=== PATIENT | female | born 1955 | race Caucasian/White ===

== ENCOUNTER 2018-05-07 05:55 | Day surgery (SDC) | payer OTHER ==
[~2018-05-07 05:55] MED LIST: AVAPRO150 MG PO; DICLOFENAC POTA50 MG PO; IBRERSANTAN PO; LEVO-T112 MCG PO; METAMUCIL0.52 G PO; OMEPRAZOLE40 MG PO; SYNTHROID75 MCG PO; TIGAN300 MG PO; TREMFYA100 MG/1 M; ZANTAC150 M3 PO
== END 2018-05-07 11:45 | disposition home or self-care (01) ==
LOC: CIR.AMB 05:55
DX: N84.0 Polyp of corpus uteri (principal)

== ENCOUNTER → 2023-06-26 | Day surgery (SDC) | payer OTHER ==
[~2023-06-26] VITALS: Ht 152.4 cm; Wt 99.8 kg
[~2023-06-26] MED LIST changes: +ACTOS15 MG PO; +ADVA IH; +VALSARTAN-HCTZ1 EAC1 PO; +VITAMIN D3 PO; +[UNRECOGNIZED DRUG - OTHER] PO
== END | disposition home or self-care (01) ==
LOC: ADM 06-24 09:15 → CIR.AMB 05:13
PROVIDERS: ATTEND Obstetrics & Gynecology
DX: N85.02 Endometrial intraepithelial neoplasia [EIN] (principal); N95.0 Postmenopausal bleeding; Z88.2 Allergy status to sulfonamides; Z20.822 Contact with and (suspected) exposure to COVID-19

== ENCOUNTER 2023-08-08 07:45 | Inpatient (IN) | payer OTHER ==
[~2023-08-08] VITALS: Ht 152.4 cm; Wt 104.3 kg
[2023-08-08 09:33] LABS: PH,URINE 5.5 (5.0-8.0); URINE APPEARANCE Clear; URINE BILIRRUBIN Negative (NEGATIVE); URINE BLOOD Small; URINE COLOR Yellow; URINE GLUCOSE Negative (NEGATIVE); URINE LEUKOCYTE Moderate; URINE NITRATE Negative; URINE PROTEIN Negative (NEGATIVE); URINE UROBILINOGEN 0.2 E.U./dl
[2023-08-08 09:34] LABS: URINE EPITHELIAL CELLS 19.4 uL (0.0-38.8); URINE WBC 171.1 uL (0.0-23.2)
[2023-08-08 09:37] LABS: HEMATOCRIT 35.6 % (36.0-45.00); HEMOGLOBIN 12.1 g/dL (12.0-15.00); MEAN CELL VOLUME 89.6 fL (80.00-100.00); MEAN CORPUSCULAR HEMOGLOBIN 30.5 pg (27.00-32.0); MEAN CORPUSCULAR HGB CONC 34.1 g/dl (32.0-36.0); PLATELET COUNT 239 K/uL (150-450); RED BLOOD COUNT 3.98 M/uL (4.00-6.00); RED CELL DISTRIBUTION WIDTH 15.5 % (11.5-14.5)
[2023-08-08 09:54] LABS: INR 1.01; PARTIAL THROMBOPLASTIN TIME 30.2 SECONDS (22.0-34.0); PROTHROMBIN TIME 10.6 SECONDS (9.0-11.5)
[2023-08-08 11:03] LABS: ALBUMIN 3.8 gm/dL (3.4-5.0); BILIRUBIN TOTAL 0.37 mg/dL (0.3-1.2); CALCIUM 8.9 mg/dL (8.5-10.1); CREATININE SERUM 1.04 mg/dL (0.55-1.02); GFR 52.54; GLOBULINA 3.9 G/DL (2.4-3.5); POTASSIUM 4.67 mEq/L (3.5-5.1); TOTAL PROTEIN 7.7 gm/dL (6.4-8.2)
[2023-08-14] MEDS ORDERED: ADVAIR HFA 230/12 GM (13:24)
[2023-08-14] MEDS ORDERED: VITAMIN D350 MCG (13:24)
[2023-08-14] MEDS ORDERED: ESCITALOPRAM OX10 MG (13:24)
[2023-08-14] MEDS ORDERED: ATORVASTATIN CA10 MG (13:24)
[2023-08-15 10:13] LABS: HEMATOCRIT 30.7 % (36.0-45.00); HEMOGLOBIN 10.1 g/dL (12.0-15.00); RED BLOOD COUNT 3.35 M/uL (4.00-6.00)
== END 2023-08-16 13:10 | disposition home or self-care (01) | DRG 741 ==
LOC: OB/GYN 08-14 05:38 → O/R 08-14 05:38 → OB/GYN 08-14 07:45
PROVIDERS: ADMIT Obstetrics & Gynecology; ATTEND Obstetrics & Gynecology
PROC: 0UT70ZZ Resection of Bilateral Fallopian Tubes, Open Approach (ICD-10-PCS; 2023-08-14)
PROC: 0UT00ZZ Resection of Right Ovary, Open Approach (ICD-10-PCS; 2023-08-14)
PROC: 0UT90ZZ Resection of Uterus, Open Approach (ICD-10-PCS; principal; 2023-08-14 10:00)
DX: C54.1 Malignant neoplasm of endometrium (principal); N80.03 Adenomyosis of the uterus; Z20.822 Contact with and (suspected) exposure to COVID-19

== ENCOUNTER 2024-12-30 10:45 | Inpatient (IN) | payer OTHER ==
[~2024-12-30] VITALS: Ht 152.4 cm; Wt 104.3 kg
[~2024-12-30 10:45] MED LIST changes: +ADVAIR HFA 230/12 GM; +ATORVASTATIN CA10 MG; +ESCITALOPRAM OX10 MG; +VITAMIN D350 MCG
[2024-12-30 12:02] VITALS: BP 140/80
[2025-01-07] MEDS ORDERED: BUPIVACAINE HCL/MPF 0.5% 30ML VIAL ONE (07:04)
[2025-01-07] MEDS ORDERED: LIDOCAINE HCL 1%/EPINEPHRINE 20ML VIAL IJ ONE ×2 (07:05→11:00)
[2025-01-07] MEDS ORDERED: METRONIDAZOLE/SODIUM CHLORIDE 500 MG/100 ML PIGGYBACK IV ONE ×3 (07:05→18:22)
[2025-01-07] MEDS ORDERED: CEFTRIAXONE SODIUM 2,000 MG VIAL ONE (07:05)
[2025-01-07] MEDS ORDERED: hydrALAZINE HCL 20 MG VIAL ONE (08:43)
[2025-01-07] MEDS ORDERED: SUGAMMADEX SODIUM 200 MG/2 ML VIAL IV ONE (09:22)
[2025-01-07] MEDS ORDERED: CEFTRIAXONE SODIUM 2,000 MG VIAL IV ONE (11:00)
[2025-01-07] MEDS ORDERED: BUPIVACAINE HCL 30 ML VIAL IV ONE (11:00)
[2025-01-07] MEDS ORDERED: MORPHINE SULFATE 4 MG/ML VIAL IV ONE ×3 (12:35→16:15)
[2025-01-07] MEDS ORDERED: DEXTROSE 50 % IN WATER 0.5 G/ML DISP.SYRIN IV PRN (13:00)
[2025-01-07] MEDS ORDERED: MORPHINE SULFATE 4 MG/ML CARTRIDGE IV PRN (13:00)
[2025-01-07] MEDS ORDERED: OxyCODONE HCL 5 MG TABLET (ROXICODONE) PO PRN (13:00)
[2025-01-07] MEDS ORDERED: 0.9 % SODIUM CHLORIDE 1,000 ML IV SCH (13:00)
[2025-01-07] MEDS ORDERED: HYOSCYAMINE SULFATE 0.125 MG TAB.SUBL SL SCH (13:00)
[2025-01-07] MEDS ORDERED: ONDANSETRON HCL 2 MG/ML VIAL IV PRN (13:00)
[2025-01-07] MEDS ORDERED: ACETAMINOPHEN 500 MG GEL..CAP PO SCH (14:00)
[2025-01-07 14:43] LABS: HEMATOCRIT 33.5 % (36.0-45.00); HEMOGLOBIN 10.9 g/dL (12.0-15.00); MEAN CELL VOLUME 92.5 fL (80.00-100.00); MEAN CORPUSCULAR HGB CONC 32.4 g/dl (32.0-36.0); PLATELET COUNT 305 K/uL (150-450); RED BLOOD COUNT 3.63 M/uL (4.00-6.00); RED CELL DISTRIBUTION WIDTH 14.8 % (11.5-14.5)
[2025-01-07 15:47] LABS: ALBUMIN 2.9 gm/dL (3.4-5.0); CALCIUM 8.1 mg/dL (8.5-10.1); CREATININE SERUM 1.82 mg/dL (0.55-1.02); GFR 27.38; MAGNESIUM 1.8 mg/dL (1.8-2.4); PHOSPHOROUS 5.3 mg/dL (2.5-4.9); POTASSIUM 4.97 mEq/L (3.5-5.1)
[2025-01-07] MEDS ORDERED: GABAPENTIN 300 MG CAPSULE PO SCH (17:00)
[2025-01-07] MEDS ORDERED: POLYETHYLENE GLYCOL 3350 17 GM BLIST.PACK PO SCH (17:00)
[2025-01-07] MEDS ORDERED: METRONIDAZOLE/SODIUM CHLORIDE 500 MG/100 ML PIGGYBACK IV SCH (17:00)
[2025-01-07] MEDS ORDERED: CELECOXIB 200 MG CAPSULE PO SCH (21:00)
[2025-01-07] MEDS ORDERED: FAMOTIDINE/PF 20 MG/2 ML VIAL IV PUSH SCH (21:00)
[2025-01-08] VITALS: BP 116/70; O2SAT 95
[2025-01-08] MEDS ORDERED: LEVOTHYROXINE SODIUM 112 MCG TABLET PO SCH (06:00)
[2025-01-08 06:58] LABS: HEMATOCRIT 32.8 % (36.0-45.00); HEMOGLOBIN 10.8 g/dL (12.0-15.00); MEAN CELL VOLUME 93.4 fL (80.00-100.00); MEAN CORPUSCULAR HEMOGLOBIN 30.6 pg (27.00-32.0); MEAN CORPUSCULAR HGB CONC 32.8 g/dl (32.0-36.0); PLATELET COUNT 254 K/uL (150-450); RED BLOOD COUNT 3.52 M/uL (4.00-6.00); RED CELL DISTRIBUTION WIDTH 15.1 % (11.5-14.5)
[2025-01-08 07:49] LABS: ALBUMIN 2.8 gm/dL (3.4-5.0); CALCIUM 7.7 mg/dL (8.5-10.1); CREATININE SERUM 2.23 mg/dL (0.55-1.02); GFR 21.66; MAGNESIUM 1.8 mg/dL (1.8-2.4); PHOSPHOROUS 5.3 mg/dL (2.5-4.9)
[2025-01-08 08:17] LABS: POTASSIUM 6.26 mEq/L (3.5-5.1)
[2025-01-08] MEDS ORDERED: PATIENTS OWN MEDICATION (MEDICAMENTO EN PISO) PO SCH (09:00)
[2025-01-08 09:20] VITALS: BP 154/79; O2SAT 94
[2025-01-08] MEDS ORDERED: hydrALAZINE HCL 20 MG VIAL IV PRN (12:00)
[2025-01-08] MEDS ORDERED: SODIUM POLYSTYRENE SULFONATE 15 G/4 TSP TSP PO SCH (13:00)
[2025-01-08] MEDS ORDERED: ENOXAPARIN SODIUM 40 MG/0.4 ML SYRINGE SUBCUTANEO SCH (17:00)
[2025-01-08] MEDS ORDERED: PIPERACILLIN/TAZOBACTAM SODIUM 2.25 GM in DEXTROSE 5 % IN WATER 50 ML IV SCH (18:00)
[2025-01-08 18:34] VITALS: BP 92/52; O2SAT 93
[2025-01-09 00:30] VITALS: BP 105/54; O2SAT 96
[2025-01-09 07:59] LABS: URINE APPEARANCE Turbid; URINE BILIRRUBIN Small (NEGATIVE); URINE BLOOD Large; URINE COLOR Dark Yellow; URINE GLUCOSE Negative (NEGATIVE); URINE KETONE Trace (NEGATIVE); URINE LEUKOCYTE Moderate; URINE NITRATE Negative; URINE UROBILINOGEN 0.2 E.U./dl
[2025-01-09 08:03] LABS: URINE BACTERIA 653.6 uL (0.0-1933); URINE CAST 12.44 uL (0.0-1.40); URINE EPITHELIAL CELLS 106.8 uL (0.0-38.8); URINE RBC 676.5 uL (0.0-20.8)
[2025-01-09 08:33] LABS: ALBUMIN 2.5 gm/dL (3.4-5.0); BILIRUBIN TOTAL 0.45 mg/dL (0.3-1.2); CALCIUM 7.6 mg/dL (8.5-10.1); CREATININE SERUM 3.79 mg/dL (0.55-1.02); GFR 11.75; GLOBULINA 3.1 G/DL (2.4-3.5); MAGNESIUM 1.7 mg/dL (1.8-2.4); PHOSPHOROUS 5.5 mg/dL (2.5-4.9); POTASSIUM 4.66 mEq/L (3.5-5.1); TOTAL PROTEIN 5.6 gm/dL (6.4-8.2)
[2025-01-09 08:36] LABS: HEMATOCRIT 27.7 % (36.0-45.00); MEAN CELL VOLUME 94.5 fL (80.00-100.00); MEAN CORPUSCULAR HGB CONC 31.7 g/dl (32.0-36.0); PLATELET COUNT 214 K/uL (150-450); RED BLOOD COUNT 2.94 M/uL (4.00-6.00); RED CELL DISTRIBUTION WIDTH 15.2 % (11.5-14.5)
[2025-01-09 08:37] LABS: URINE PROTEIN 100 (NEGATIVE)
[2025-01-09 08:39] LABS: URINE YEAST NEGATIVE /hpf
[2025-01-09 08:39] LABS: HEMOGLOBIN 8.8 g/dL (12.0-15.00); MEAN CORPUSCULAR HEMOGLOBIN 29.9 pg (27.00-32.0)
[2025-01-09] MEDS ORDERED: ENOXAPARIN SODIUM 40 MG/0.4 ML SYRINGE SUBCUTANEO SCH (09:00)
[2025-01-09 09:07] LABS: C-REACTIVE PROTEIN 28.1 MG/DL (0.00-0.29)
[2025-01-09 12:06] VITALS: BP 118/72; O2SAT 96
[2025-01-09 16:00] VITALS: BP 95/62; O2SAT 95
[2025-01-09] MEDS ORDERED: LEVALBUTEROL HCL 0.63 MG/3 ML SOLUTION IH SCH (17:00)
[2025-01-10] VITALS (25 sets, daily range): BP systolic 66–129; BP diastolic 40–100; O2SAT 90–100
[2025-01-10] MEDS ORDERED: DOPamine HCL IN DEXTROSE 5 % 250 ML IV SCH (06:15)
[2025-01-10 09:38] LABS: ABG PH 7.246 (7.35-7.45); ABG PO2 171.6 mmHg (80-100); ABG pCO2 34.9 mmHg (35-45); BASE EXCESS -11.4 mmol/l; BICARBONATE 14.8 mmol/l (23-25); SaO2 99.1 %; Tco2 15.9 mmol/l
[2025-01-10 09:44] LABS: allen test SATISFACTORY; o2 32 %; puncture site RADIAL LEFT
[2025-01-10] MEDS ORDERED: NOREPINEPHRINE BITARTRATE 8 MG in DEXTROSE 5 % IN WATER 250 ML IV SCH (10:45)
[2025-01-10] MEDS ORDERED: 0.9 % SODIUM CHLORIDE 1,000 ML IV SCH (10:45)
[2025-01-10 11:49] LABS: HEMATOCRIT 37.8 % (36.0-45.00); MEAN CELL VOLUME 92.4 fL (80.00-100.00); MEAN CORPUSCULAR HEMOGLOBIN 29.4 pg (27.00-32.0); MEAN CORPUSCULAR HGB CONC 31.8 g/dl (32.0-36.0); PLATELET COUNT 226 K/uL (150-450); RED BLOOD COUNT 4.09 M/uL (4.00-6.00); RED CELL DISTRIBUTION WIDTH 15.4 % (11.5-14.5)
[2025-01-10] MEDS ORDERED: LEVALBUTEROL HCL 0.63 MG/3 ML SOLUTION IH SCH (12:00)
[2025-01-10 13:38] LABS: ALBUMIN 2.4 gm/dL (3.4-5.0); BILIRUBIN TOTAL 0.76 mg/dL (0.3-1.2); CALCIUM 7.3 mg/dL (8.5-10.1); CREATININE SERUM 3.42 mg/dL (0.55-1.02); GFR 13.22; GLOBULINA 3.4 G/DL (2.4-3.5); POTASSIUM 3.99 mEq/L (3.5-5.1); TOTAL PROTEIN 5.8 gm/dL (6.4-8.2)
[2025-01-11 04:00] VITALS: BP 130/63; O2SAT 98
[2025-01-11 06:52] LABS: HEMATOCRIT 27.9 % (36.0-45.00); MEAN CELL VOLUME 90.7 fL (80.00-100.00); MEAN CORPUSCULAR HGB CONC 34.1 g/dl (32.0-36.0); PLATELET COUNT 176 K/uL (150-450); RED BLOOD COUNT 3.08 M/uL (4.00-6.00); RED CELL DISTRIBUTION WIDTH 15.7 % (11.5-14.5)
[2025-01-11 07:01] LABS: HEMOGLOBIN 9.5 g/dL (12.0-15.00); MEAN CORPUSCULAR HEMOGLOBIN 30.8 pg (27.00-32.0)
[2025-01-11 07:20] VITALS: BP 117/62; O2SAT 100
[2025-01-11 07:38] LABS: ALBUMIN 1.8 gm/dL (3.4-5.0); BILIRUBIN TOTAL 0.4 mg/dL (0.3-1.2); CREATININE SERUM 1.55 mg/dL (0.55-1.02); GFR 32.96; POTASSIUM 3.58 mEq/L (3.5-5.1); TOTAL PROTEIN 4.8 gm/dL (6.4-8.2)
[2025-01-11] MEDS ORDERED: MEROPENEM 500 MG/VIAL VIAL IV SCH (09:00)
[2025-01-11] MEDS ORDERED: LINEZOLID IN DEXTROSE 5% 300 ML IV SCH (09:00)
[2025-01-11 12:00] VITALS: BP 119/78; O2SAT 98
[2025-01-11 16:07] VITALS: BP 142/65; O2SAT 100
[2025-01-11 20:00] VITALS: BP 133/57; O2SAT 100
[2025-01-11 23:27] VITALS: BP 140/55; O2SAT 100
[2025-01-12 04:00] VITALS: BP 159/73; O2SAT 97
[2025-01-12 06:41] LABS: HEMATOCRIT 34.1 % (36.0-45.00); HEMOGLOBIN 11.7 g/dL (12.0-15.00); MEAN CELL VOLUME 89.3 fL (80.00-100.00); MEAN CORPUSCULAR HEMOGLOBIN 30.5 pg (27.00-32.0); MEAN CORPUSCULAR HGB CONC 34.2 g/dl (32.0-36.0); PLATELET COUNT 234 K/uL (150-450); RED BLOOD COUNT 3.82 M/uL (4.00-6.00); RED CELL DISTRIBUTION WIDTH 15.5 % (11.5-14.5)
[2025-01-12 07:03] LABS: ALBUMIN 2.3 gm/dL (3.4-5.0); BILIRUBIN TOTAL 0.48 mg/dL (0.3-1.2); CALCIUM 8.2 mg/dL (8.5-10.1); CREATININE SERUM 1.57 mg/dL (0.55-1.02); GFR 32.48; GLOBULINA 3.6 G/DL (2.4-3.5); POTASSIUM 3.64 mEq/L (3.5-5.1); TOTAL PROTEIN 5.9 gm/dL (6.4-8.2)
[2025-01-12 07:14] VITALS: O2SAT 98
[2025-01-12] MEDS ORDERED: ONDANSETRON HCL 2 MG/ML VIAL IV PRN (14:00)
[2025-01-12 14:40] VITALS: BP 160/88; O2SAT 98
[2025-01-12] MEDS ORDERED: DIATRIZOATE MEGLUMINE, SODIUM 30 ML BOTTLE PO NR (16:00)
[2025-01-12] MEDS ORDERED: hydrALAZINE HCL 20 MG VIAL IV PRN (18:27)
[2025-01-12] MEDS ORDERED: SODIUM CHLORIDE 0.45 % 1,000 ML IV SCH (18:30)
[2025-01-12 20:00] VITALS: BP 138/66; O2SAT 97
[2025-01-12] MEDS ORDERED: MEROPENEM 500 MG/VIAL VIAL IV SCH (21:00)
[2025-01-12 23:06] VITALS: BP 145/69; O2SAT 97
[2025-01-13 04:00] VITALS: BP 155/73; O2SAT 96
[2025-01-13 07:07] VITALS: BP 155/73; O2SAT 98
[2025-01-13] MEDS ORDERED: AA 4.25%/CALCIUM/LYTES/DEX 10% 1,000 ML CENTRAL SCH ×2 (07:15→17:00)
[2025-01-13] MEDS ORDERED: PANTOPRAZOLE SODIUM 40 MG/VIAL VIAL IV SCH (09:00)
[2025-01-13 10:57] LABS: CHOL HDL RATIO 2.2 (0-5.0); CREATININE SERUM 1.29 mg/dL (0.55-1.02); GFR 40.74; POTASSIUM 3.6 mEq/L (3.5-5.1)
[2025-01-13 15:37] VITALS: BP 156/65; O2SAT 98
[2025-01-13] MEDS ORDERED: AA 5 % NO.6/DEXTROSE 15 % 2,000 ML IV SCH (17:00)
[2025-01-13] MEDS ORDERED: METRONIDAZOLE/SODIUM CHLORIDE 100 ML IV SCH (17:00)
[2025-01-13 20:00] VITALS: BP 136/70; O2SAT 98
[2025-01-13] MEDS ORDERED: CEFTRIAXONE SODIUM 2,000 MG VIAL IV SCH (21:00)
[2025-01-13 23:55] VITALS: BP 140/75; O2SAT 97
[2025-01-14 04:00] VITALS: BP 133/64; O2SAT 98
[2025-01-14 07:24] VITALS: BP 154/75; O2SAT 98
[2025-01-14 12:30] VITALS: BP 154/79; O2SAT 100
[2025-01-14] MEDS ORDERED: ESCITALOPRAM 10 MG PO SCH (12:45)
[2025-01-14] MEDS ORDERED: ENOXAPARIN SODIUM 30 MG/0.3 ML SYRINGE SUBCUTANEO SCH (12:47)
[2025-01-14 13:19] VITALS: O2SAT 100
[2025-01-14 15:28] VITALS: BP 131/78; O2SAT 98
[2025-01-14 20:22] VITALS: BP 153/59; O2SAT 98
[2025-01-15 06:29] LABS: HEMATOCRIT 32.7 % (36.0-45.00); HEMOGLOBIN 11.1 g/dL (12.0-15.00); MEAN CELL VOLUME 88.6 fL (80.00-100.00); MEAN CORPUSCULAR HEMOGLOBIN 30.1 pg (27.00-32.0); PLATELET COUNT 199 K/uL (150-450); RED BLOOD COUNT 3.69 M/uL (4.00-6.00); RED CELL DISTRIBUTION WIDTH 15.2 % (11.5-14.5)
[2025-01-15 07:03] LABS: ALBUMIN 1.8 gm/dL (3.4-5.0); BILIRUBIN TOTAL 0.21 mg/dL (0.3-1.2); CALCIUM 7.2 mg/dL (8.5-10.1); CREATININE SERUM 0.89 mg/dL (0.55-1.02); GFR 62.52; GLOBULINA 3.1 G/DL (2.4-3.5); POTASSIUM 3.03 mEq/L (3.5-5.1); TOTAL PROTEIN 4.9 gm/dL (6.4-8.2)
[2025-01-15 08:00] VITALS: BP 158/69; O2SAT 97
[2025-01-15 12:00] VITALS: BP 156/67; O2SAT 98
[2025-01-15 16:00] VITALS: BP 149/73; O2SAT 100
[2025-01-15 20:00] VITALS: BP 158/78; O2SAT 96
[2025-01-16 00:31] VITALS: BP 149/75; O2SAT 96
[2025-01-16 08:00] VITALS: BP 163/73; O2SAT 98
[2025-01-16] MEDS ORDERED: TAMSULOSIN HCL 0.4 MG CAP PO SCH (09:00)
[2025-01-16] MEDS ORDERED: LACTOBACILLUS ACIDOPHILUS 1 CAP CAP PO SCH (09:00)
[2025-01-16 16:00] VITALS: BP 168/77; O2SAT 93
[2025-01-17 00:56] VITALS: BP 135/70; O2SAT 95
[2025-01-17 08:01] LABS: HEMATOCRIT 35.6 % (36.0-45.00); HEMOGLOBIN 11.7 g/dL (12.0-15.00); MEAN CELL VOLUME 90.4 fL (80.00-100.00); MEAN CORPUSCULAR HEMOGLOBIN 29.7 pg (27.00-32.0); MEAN CORPUSCULAR HGB CONC 32.8 g/dl (32.0-36.0); PLATELET COUNT 239 K/uL (150-450); RED BLOOD COUNT 3.94 M/uL (4.00-6.00); RED CELL DISTRIBUTION WIDTH 15.3 % (11.5-14.5)
[2025-01-17 08:33] LABS: BILIRUBIN TOTAL 0.33 mg/dL (0.3-1.2); CALCIUM 6.9 mg/dL (8.5-10.1); CREATININE SERUM 1.05 mg/dL (0.55-1.02); GFR 51.66; GLOBULINA 3.2 G/DL (2.4-3.5); POTASSIUM 3.16 mEq/L (3.5-5.1); TOTAL PROTEIN 5.2 gm/dL (6.4-8.2)
[2025-01-17 08:36] LABS: MAGNESIUM 0.9 mg/dL (1.8-2.4); PHOSPHOROUS 0.6 mg/dL (2.5-4.9)
[2025-01-17] MEDS ORDERED: POTASSIUM PHOS,M-BASIC-D-BASIC 15 MM in 0.9 % SODIUM CHLORIDE 250 ML IV NR (11:15)
[2025-01-17] MEDS ORDERED: 0.9 % SODIUM CHLORIDE 1,000 ML IV SCH (11:15)
[2025-01-17] MEDS ORDERED: POTASSIUM CHLORIDE 20MEQ/100ML H2O PB IV NR (12:00)
[2025-01-17] MEDS ORDERED: MAGNESIUM SULFATE IN WATER 50 ML IV NR (12:00)
[2025-01-17 14:43] VITALS: BP 142/80; O2SAT 96
[2025-01-17 17:42] VITALS: BP 139/69; O2SAT 98
[2025-01-18 00:19] VITALS: BP 111/65; O2SAT 95
[2025-01-18 06:27] LABS: HEMATOCRIT 34.1 % (36.0-45.00); HEMOGLOBIN 11.5 g/dL (12.0-15.00); MEAN CELL VOLUME 90.2 fL (80.00-100.00); MEAN CORPUSCULAR HEMOGLOBIN 30.5 pg (27.00-32.0); MEAN CORPUSCULAR HGB CONC 33.8 g/dl (32.0-36.0); PLATELET COUNT 251 K/uL (150-450); RED BLOOD COUNT 3.78 M/uL (4.00-6.00); RED CELL DISTRIBUTION WIDTH 15.1 % (11.5-14.5)
[2025-01-18 06:50] LABS: INR 1.21; PARTIAL THROMBOPLASTIN TIME 36.6 SECONDS (22.0-34.0)
[2025-01-18 07:13] LABS: ALBUMIN 2.2 gm/dL (3.4-5.0); ALKALINE PHOSPHATASE 76 U/L (50-136); ALT/SGPT 16 U/L (12-78); ANION GAP 10 (10.0-20.0); AST/SGOT 19 U/L (15-37); BILIRUBIN TOTAL 0.39 mg/dL (0.3-1.2); BILIRUBIN,CONJUGATED < 0.10 mg/dL (0.0-0.2); BILIRUBIN,UNCONJUGATED 0.29 mg/dL (0.0-0.6); BLOOD UREA NITROGEN 28 mg/dL (7-18); BUN CREA RATIO 26 (7.0-25.0); CALCIUM 7.1 mg/dL (8.5-10.1); CARBON DIOXIDE 25 mEq/L (21-32); CHLORIDE 112 mmol/L (98-107); CHOL HDL RATIO 3.2 (0-5.0); CHOLESTEROL 102 mg/dL (0-200); CREATININE SERUM 1.08 mg/dL (0.55-1.02); GFR 50.01; GLOBULINA 3.4 G/DL (2.4-3.5); GLUCOSE FASTING 125 mg/dL (65-100); HDL 32 mg/dl (40-60); LDL 44 mg/dl (0-130); OSMOLALITY SERUM 292 MOSM/KG (275-295); POTASSIUM 4.14 mEq/L (3.5-5.1); SODIUM 143 mmol/L (136-145); TOTAL PROTEIN 5.6 gm/dL (6.4-8.2); TRIGLYCERIDES 131 mg/dL (0-150); VLDL 26 (0-39)
[2025-01-18 07:56] LABS: PHOSPHOROUS 1.5 mg/dL (2.5-4.9)
[2025-01-18 08:00] VITALS: BP 126/63; O2SAT 95
[2025-01-18] MEDS ORDERED: POTASSIUM PHOS,M-BASIC-D-BASIC 9 MM in 0.9 % SODIUM CHLORIDE 250 ML IV NR (10:00)
[2025-01-18] MEDS ORDERED: IPRATROPIUM BROMIDE 0.5 MG/2.5 ML AMPUL.NEB IH NR (14:00)
[2025-01-18] MEDS ORDERED: LEVALBUTEROL HCL 0.63 MG/3 ML SOLUTION IH NR (14:00)
[2025-01-18] MEDS ORDERED: LEVALBUTEROL HCL 0.63 MG/3 ML SOLUTION IH SCH (17:00)
[2025-01-18] MEDS ORDERED: IPRATROPIUM BROMIDE 0.5 MG/2.5 ML AMPUL.NEB IH SCH (17:00)
[2025-01-18 17:06] VITALS: BP 153/75; O2SAT 96
[2025-01-18] MEDS ORDERED: FAMOtidine 20 MG TABLET PO SCH (21:00)
[2025-01-19 00:18] VITALS: BP 111/72; O2SAT 96
[2025-01-19 08:00] VITALS: BP 148/75; O2SAT 95
[2025-01-19] MEDS ORDERED: CHOLESTYRAMINE/ASPARTAME LIGHT 4 G/PKT PACKET PO SCH (09:00)
[2025-01-19 15:53] VITALS: BP 145/83; O2SAT 94
[2025-01-20 00:13] VITALS: BP 133/68; O2SAT 97
[2025-01-20 07:12] LABS: CALCIUM 6.7 mg/dL (8.5-10.1); CREATININE SERUM 1.09 mg/dL (0.55-1.02); GFR 49.48; POTASSIUM 3.25 mEq/L (3.5-5.1)
[2025-01-20 07:20] LABS: MAGNESIUM 1.3 mg/dL (1.8-2.4); PHOSPHOROUS 1.9 mg/dL (2.5-4.9)
[2025-01-20 08:00] VITALS: BP 151/74; O2SAT 96
[2025-01-20] MEDS ORDERED: TRAMADOL HCL 50 MG TABLET PO PRN (08:15)
[2025-01-20] MEDS ORDERED: MORPHINE SULFATE 4 MG/ML CARTRIDGE IV PRN (08:15)
[2025-01-20] MEDS ORDERED: DIATRIZOATE MEGLUMINE, SODIUM 30 ML BOTTLE PO ONE (08:45)
[2025-01-20] MEDS ORDERED: NYSTATIN 5 ML BLIST.PACK PO SCH (09:00)
[2025-01-20] MEDS ORDERED: SUCRALFATE 1 G TABLET PO SCH (09:00)
[2025-01-20] MEDS ORDERED: IPRATROPIUM/ALBUTEROL SULFATE 3 ML AMPUL.NEB IH SCH (10:22)
[2025-01-20] MEDS ORDERED: METHYLPREDNISOLONE SOD SUCC 40 MG VIAL IV SCH (10:55)
[2025-01-20] MEDS ORDERED: POTASSIUM CHLORIDE IN WATER 100 ML IV NR (12:00)
[2025-01-20] MEDS ORDERED: MAGNESIUM SULFATE IN WATER 4 GM/100 ML PIGGYBACK IV NR (15:00)
[2025-01-20] MEDS ORDERED: POTASSIUM PHOS,M-BASIC-D-BASIC 15 MM in 0.9 % SODIUM CHLORIDE 250 ML IV NR (15:00)
[2025-01-20 16:34] VITALS: BP 149/80; O2SAT 96
[2025-01-21 00:06] VITALS: BP 135/75; O2SAT 95
[2025-01-21 08:40] VITALS: BP 150/84; O2SAT 98
[2025-01-21 09:56] LABS: HEMATOCRIT 30.7 % (36.0-45.00); HEMOGLOBIN 10.4 g/dL (12.0-15.00); MEAN CELL VOLUME 90.4 fL (80.00-100.00); MEAN CORPUSCULAR HEMOGLOBIN 30.6 pg (27.00-32.0); MEAN CORPUSCULAR HGB CONC 33.9 g/dl (32.0-36.0); PLATELET COUNT 283 K/uL (150-450); RED CELL DISTRIBUTION WIDTH 15.2 % (11.5-14.5)
[2025-01-21 10:21] LABS: ALBUMIN 2.2 gm/dL (3.4-5.0); BILIRUBIN TOTAL 0.22 mg/dL (0.3-1.2); CALCIUM 7.3 mg/dL (8.5-10.1); CREATININE SERUM 1.15 mg/dL (0.55-1.02); GFR 46.51; GLOBULINA 3.9 G/DL (2.4-3.5); MAGNESIUM 2.2 mg/dL (1.8-2.4); PHOSPHOROUS 2.8 mg/dL (2.5-4.9); POTASSIUM 4.99 mEq/L (3.5-5.1); TOTAL PROTEIN 6.1 gm/dL (6.4-8.2)
[2025-01-21] MEDS ORDERED: CHLORHEXIDINE GLUCONATE 120 ML BOTTLE TOP ONE (17:15)
[2025-01-21] MEDS ORDERED: IOVERSOL 320 MG/ML - 100 ML VIAL IV ONE (17:15)
[2025-01-21] MEDS ORDERED: CIPROFLOXACIN IN 5 % DEXTROSE 200 ML IV SCH (17:54)
[2025-01-21] MEDS ORDERED: levoFLOXacin IN DEXTROSE 5 % 150 ML IV NR (18:30)
[2025-01-21 21:40] VITALS: BP 163/83; O2SAT 100
[2025-01-22 00:30] VITALS: BP 145/80; O2SAT 95
[2025-01-22 08:42] VITALS: BP 158/83; O2SAT 99
[2025-01-22] MEDS ORDERED: GUAIFENESIN 200 MG/10 ML BLIST.PACK PO SCH (12:00)
[2025-01-22 15:03] LABS: PH,URINE 5.5 (5.0-8.0); URINE APPEARANCE Turbid; URINE BILIRRUBIN Negative (NEGATIVE); URINE BLOOD Large; URINE COLOR Orange; URINE GLUCOSE Negative (NEGATIVE); URINE KETONE Negative (NEGATIVE); URINE LEUKOCYTE Moderate; URINE NITRATE Positive
[2025-01-22 15:35] LABS: URINE EPITHELIAL CELLS 35.9 uL (0.0-38.8)
[2025-01-22 16:01] LABS: URINE BACTERIA > 9821.5 uL (0.0-1933); URINE MUCUS SCANT; URINE PROTEIN 100 (NEGATIVE); URINE RBC > 10558.9 uL (0.0-20.8)
[2025-01-22 16:31] VITALS: BP 168/79; O2SAT 96
[2025-01-22] MEDS ORDERED: MEROPENEM 500 MG/VIAL VIAL IV SCH (17:00)
[2025-01-22] MEDS ORDERED: BUDESONIDE 0.5 MG/2 ML AMPUL.NEB IH SCH (17:00)
[2025-01-22] MEDS ORDERED: levoFLOXacin IN DEXTROSE 5 % 150 ML IV SCH (17:00)
[2025-01-23] VITALS: BP 124/61; O2SAT 96
[2025-01-23 07:59] LABS: HEMATOCRIT 29.1 % (36.0-45.00); HEMOGLOBIN 9.6 g/dL (12.0-15.00); MEAN CORPUSCULAR HEMOGLOBIN 29.9 pg (27.00-32.0); MEAN CORPUSCULAR HGB CONC 32.9 g/dl (32.0-36.0); PLATELET COUNT 315 K/uL (150-450); RED CELL DISTRIBUTION WIDTH 15.4 % (11.5-14.5)
[2025-01-23 08:29] LABS: ALBUMIN 2.2 gm/dL (3.4-5.0); BILIRUBIN TOTAL 0.28 mg/dL (0.3-1.2); CALCIUM 7.7 mg/dL (8.5-10.1); CREATININE SERUM 1.3 mg/dL (0.55-1.02); GFR 40.38; GLOBULINA 3.5 G/DL (2.4-3.5); MAGNESIUM 1.7 mg/dL (1.8-2.4); POTASSIUM 4.93 mEq/L (3.5-5.1); TOTAL PROTEIN 5.7 gm/dL (6.4-8.2)
[2025-01-23 08:39] VITALS: BP 153/81; O2SAT 96
[2025-01-23 08:45] LABS: PHOSPHOROUS 1.8 mg/dL (2.5-4.9)
[2025-01-23] MEDS ORDERED: POTASSIUM PHOS,M-BASIC-D-BASIC 15 MM in 0.9 % SODIUM CHLORIDE 250 ML IV NR (11:00)
[2025-01-23 16:00] VITALS: BP 126/65; O2SAT 96
[2025-01-24 01:39] VITALS: BP 136/72; O2SAT 94
[2025-01-24 08:46] VITALS: BP 150/79; O2SAT 97
[2025-01-24] MEDS ORDERED: POLYETHYLENE GLYCOL 3350 17 GM BLIST.PACK PO SCH (13:32)
[2025-01-24 16:00] VITALS: BP 165/84; O2SAT 98
[2025-01-25] VITALS: BP 144/70; O2SAT 95
[2025-01-25 06:22] LABS: HEMATOCRIT 27.8 % (36.0-45.00); HEMOGLOBIN 9.4 g/dL (12.0-15.00); MEAN CELL VOLUME 89.2 fL (80.00-100.00); MEAN CORPUSCULAR HEMOGLOBIN 30.1 pg (27.00-32.0); MEAN CORPUSCULAR HGB CONC 33.7 g/dl (32.0-36.0); PLATELET COUNT 293 K/uL (150-450); RED BLOOD COUNT 3.12 M/uL (4.00-6.00); RED CELL DISTRIBUTION WIDTH 15.3 % (11.5-14.5)
[2025-01-25 06:59] LABS: ALBUMIN 1.8 gm/dL (3.4-5.0); BILIRUBIN TOTAL 0.42 mg/dL (0.3-1.2); CALCIUM 7.1 mg/dL (8.5-10.1); CREATININE SERUM 0.83 mg/dL (0.55-1.02); GFR 67.77; GLOBULINA 3.2 G/DL (2.4-3.5); POTASSIUM 3.85 mEq/L (3.5-5.1)
[2025-01-25 07:01] LABS: MAGNESIUM 1.4 mg/dL (1.8-2.4)
[2025-01-25 07:10] LABS: PHOSPHOROUS 1.3 mg/dL (2.5-4.9)
[2025-01-25] MEDS ORDERED: CEFTAZIDIME/AVIBACTAM 2.5 GM VIAL IV SCH (09:00)
[2025-01-25] MEDS ORDERED: POTASSIUM PHOS,M-BASIC-D-BASIC 3 MM/ML VIAL IV ONE (12:00)
[2025-01-25 16:21] VITALS: BP 147/78; O2SAT 95
[2025-01-26] VITALS: BP 154/77; O2SAT 96
[2025-01-26 08:49] VITALS: BP 157/81; O2SAT 98
[2025-01-26] MEDS ORDERED: BUDESONIDE 0.5 MG/2 ML AMPUL.NEB IH SCH (09:00)
[2025-01-26 16:00] VITALS: BP 151/69; O2SAT 96
[2025-01-27] VITALS (7 sets, daily range): BP systolic 99–170; BP diastolic 60–76; O2SAT 92–100
[2025-01-27 07:32] LABS: HEMATOCRIT 26.9 % (36.0-45.00); MEAN CELL VOLUME 88.7 fL (80.00-100.00); MEAN CORPUSCULAR HGB CONC 33.3 g/dl (32.0-36.0); PLATELET COUNT 309 K/uL (150-450); RED BLOOD COUNT 3.03 M/uL (4.00-6.00)
[2025-01-27 07:36] LABS: MEAN CORPUSCULAR HEMOGLOBIN 29.3 pg (27.00-32.0)
[2025-01-27 07:37] LABS: HEMOGLOBIN 8.9 g/dL (12.0-15.00)
[2025-01-27 08:11] LABS: CALCIUM 7.1 mg/dL (8.5-10.1); CREATININE SERUM 0.72 mg/dL (0.55-1.02); GFR 79.85; MAGNESIUM 1.5 mg/dL (1.8-2.4); POTASSIUM 3.78 mEq/L (3.5-5.1)
[2025-01-27] MEDS ORDERED: NAPH,MB-DB/K PH,MBDB 1 PKT PACKET PO NR (11:00)
[2025-01-27] MEDS ORDERED: IRON FUM,PS/FOLIC/BCOMP,C NO.9 1 CAP CAPSULE PO SCH (12:43)
[2025-01-27] MEDS ORDERED: SOD FERRIC GLUC COMPLX/SUCROSE 62.5 MG in 0.9 % SODIUM CHLORIDE 50 ML IV SCH (12:45)
[2025-01-27] MEDS ORDERED: ACETAMINOPHEN 500 MG GEL..CAP PO PRN (16:30)
[2025-01-27] MEDS ORDERED: NAPH,MB-DB/K PH,MBDB 1 PKT PACKET PO SCH (17:00)
[2025-01-27] MEDS ORDERED: ONDANSETRON HCL 2 MG/ML VIAL IV STA (17:09)
[2025-01-27 19:43] LABS: ABG PO2 40.6 mmHg (80-100); BASE EXCESS 2.1 mmol/l; SaO2 82.4 %; Tco2 24.9 mmol/l; allen test SATISFACTORY; o2 32 %; puncture site RADIAL RIGHT
[2025-01-27] MEDS ORDERED: ENOXAPARIN SODIUM 100 MG/ML SYRINGE SUBCUTANEO SCH (21:00)
[2025-01-28] VITALS (8 sets, daily range): BP systolic 89–108; BP diastolic 52–61; O2SAT 86–99
[2025-01-28] MEDS ORDERED: ONDANSETRON HCL 2 MG/ML VIAL IV PRN
[2025-01-28] MEDS ORDERED: ONDANSETRON HCL 2 MG/ML VIAL IV SCH (01:00)
[2025-01-28] MEDS ORDERED: ANIDULAFUNGIN 100 MG VIAL IV NR (17:00)
[2025-01-28 18:28] LABS: ABG PH 7.474 (7.35-7.45); ABG pCO2 34.7 mmHg (35-45)
[2025-01-28 18:29] LABS: BASE EXCESS 1.8 mmol/l; SaO2 96.3 %; allen test SATISFACTORY; o2 35 %; puncture site RADIAL RIGHT
[2025-01-28 18:30] LABS: ABG PO2 77.5 mmHg (80-100)
[2025-01-28 19:08] LABS: PH,URINE 5.5 (5.0-8.0); URINE APPEARANCE Cloudy; URINE BILIRRUBIN Negative (NEGATIVE); URINE BLOOD Moderate; URINE COLOR Dark Yellow; URINE GLUCOSE Negative (NEGATIVE); URINE KETONE 15 (NEGATIVE); URINE LEUKOCYTE Moderate; URINE NITRATE Negative; URINE UROBILINOGEN 0.2 E.U./dl
[2025-01-28 19:09] LABS: URINE BACTERIA 444.3 uL (0.0-1933); URINE RBC 206.2 uL (0.0-20.8); URINE WBC 1260.7 uL (0.0-23.2)
[2025-01-28 19:16] LABS: HEMATOCRIT 28.5 % (36.0-45.00); HEMOGLOBIN 9.4 g/dL (12.0-15.00); MEAN CORPUSCULAR HEMOGLOBIN 29.3 pg (27.00-32.0); MEAN CORPUSCULAR HGB CONC 32.9 g/dl (32.0-36.0); PLATELET COUNT 192 K/uL (150-450); RED CELL DISTRIBUTION WIDTH 14.8 % (11.5-14.5)
[2025-01-28 19:29] LABS: URINE CAST 1.32 uL (0.0-1.40); URINE PROTEIN 100 (NEGATIVE); URINE YEAST FEW /hpf
[2025-01-28 19:44] LABS: ALBUMIN 1.7 gm/dL (3.4-5.0); BILIRUBIN TOTAL 0.36 mg/dL (0.3-1.2); CREATININE SERUM 1.52 mg/dL (0.55-1.02); GFR 33.71; GLOBULINA 3.4 G/DL (2.4-3.5); POTASSIUM 3.52 mEq/L (3.5-5.1); TOTAL PROTEIN 5.1 gm/dL (6.4-8.2)
[2025-01-28 20:16] LABS: CALCIUM 6.5 mg/dL (8.5-10.1); MAGNESIUM 0.9 mg/dL (1.8-2.4); PHOSPHOROUS 1.7 mg/dL (2.5-4.9)
[2025-01-28] MEDS ORDERED: CALCIUM GLUCONATE 100 MG/ML VIAL IV ONE (20:45)
[2025-01-28] MEDS ORDERED: CALCIUM GLUCONATE 100 MG/ML VIAL ONE (20:45)
[2025-01-28] MEDS ORDERED: POTASSIUM PHOS,M-BASIC-D-BASIC 3 MM/ML VIAL IV ONE (20:45)
[2025-01-28] MEDS ORDERED: MAGNESIUM SULFATE IN WATER 4 GM/100 ML PIGGYBACK IV ONE (20:45)
[2025-01-28] MEDS ORDERED: VANCOMYCIN HCL 5 MG/ML REDILUIDO IV SCH (21:00)
[2025-01-29] VITALS (8 sets, daily range): BP systolic 90–149; BP diastolic 50–87; O2SAT 92–98
[2025-01-29] MEDS ORDERED: ENOXAPARIN SODIUM 100 MG/ML SYRINGE SUBCUTANEO SCH (09:00)
[2025-01-29] MEDS ORDERED: ANIDULAFUNGIN 100 MG VIAL IV SCH (17:00)
[2025-01-30] VITALS (9 sets, daily range): BP systolic 100–144; BP diastolic 56–83; O2SAT 88–99
[2025-01-30] MEDS ORDERED: CEFTAZIDIME/AVIBACTAM 2.5 GM VIAL IV SCH (01:00)
[2025-01-30 07:40] LABS: HEMATOCRIT 26.1 % (36.0-45.00); MEAN CELL VOLUME 88.8 fL (80.00-100.00); MEAN CORPUSCULAR HGB CONC 33.3 g/dl (32.0-36.0); PLATELET COUNT 158 K/uL (150-450); RED BLOOD COUNT 2.94 M/uL (4.00-6.00); RED CELL DISTRIBUTION WIDTH 15.1 % (11.5-14.5)
[2025-01-30 07:49] LABS: ALBUMIN 1.6 gm/dL (3.4-5.0); BILIRUBIN TOTAL 0.22 mg/dL (0.3-1.2); CALCIUM 7.2 mg/dL (8.5-10.1); CREATININE SERUM 1.51 mg/dL (0.55-1.02); GFR 33.97; GLOBULINA 3.4 G/DL (2.4-3.5); MAGNESIUM 1.9 mg/dL (1.8-2.4); PHOSPHOROUS 2.4 mg/dL (2.5-4.9); POTASSIUM 4.06 mEq/L (3.5-5.1)
[2025-01-30 08:00] LABS: HEMOGLOBIN 8.7 g/dL (12.0-15.00); MEAN CORPUSCULAR HEMOGLOBIN 29.5 pg (27.00-32.0)
[2025-01-30] MEDS ORDERED: CEFTAZIDIME/AVIBACTAM 1.25GM/100ML NSS PB IV SCH (09:00)
[2025-01-30] MEDS ORDERED: PANTOPRAZOLE SODIUM 40 MG/VIAL VIAL IV SCH (09:15)
[2025-01-30] MEDS ORDERED: SOD FERRIC GLUC COMPLX/SUCROSE 62.5 MG in 0.9 % SODIUM CHLORIDE 50 ML IV NR (10:00)
[2025-01-30] MEDS ORDERED: SODIUM CHLORIDE 0.45 % 1,000 ML IV SCH (13:15)
[2025-01-31 00:26] VITALS: BP 132/70; O2SAT 99
[2025-01-31 02:35] VITALS: O2SAT 99
[2025-01-31 05:49] VITALS: O2SAT 89
[2025-01-31 08:14] VITALS: BP 151/80; O2SAT 99
[2025-01-31] MEDS ORDERED: SOD FERRIC GLUC COMPLX/SUCROSE 62.5 MG in 0.9 % SODIUM CHLORIDE 50 ML IV SCH (09:00)
[2025-01-31] MEDS ORDERED: ENOXAPARIN SODIUM 40 MG/0.4 ML SYRINGE SUBCUTANEO SCH (09:00)
[2025-01-31 16:45] VITALS: BP 154/79; O2SAT 97
[2025-01-31 21:39] VITALS: O2SAT 93
[2025-02-01] VITALS (8 sets, daily range): BP systolic 125–166; BP diastolic 70–89; O2SAT 90–99
[2025-02-01 07:02] LABS: HEMATOCRIT 29.1 % (36.0-45.00); HEMOGLOBIN 9.8 g/dL (12.0-15.00); MEAN CELL VOLUME 89.5 fL (80.00-100.00); MEAN CORPUSCULAR HGB CONC 33.5 g/dl (32.0-36.0); PLATELET COUNT 178 K/uL (150-450); RED BLOOD COUNT 3.26 M/uL (4.00-6.00); RED CELL DISTRIBUTION WIDTH 15.2 % (11.5-14.5)
[2025-02-01 07:26] LABS: ALBUMIN 1.9 gm/dL (3.4-5.0); BILIRUBIN TOTAL 0.29 mg/dL (0.3-1.2); CALCIUM 7.7 mg/dL (8.5-10.1); CREATININE SERUM 0.98 mg/dL (0.55-1.02); GFR 55.94; GLOBULINA 3.5 G/DL (2.4-3.5); POTASSIUM 4.29 mEq/L (3.5-5.1); TOTAL PROTEIN 5.4 gm/dL (6.4-8.2)
[2025-02-01] MEDS ORDERED: CEFTAZIDIME/AVIBACTAM 1.25GM/100ML NSS PB IV SCH (21:00)
[2025-02-02] VITALS (8 sets, daily range): BP systolic 116–164; BP diastolic 66–85; O2SAT 92–99
[2025-02-02] MEDS ORDERED: GUAIFENESIN 200 MG/10 ML BLIST.PACK PO PRN (13:41)
[2025-02-03 00:56] VITALS: BP 136/67; O2SAT 99
[2025-02-03 08:00] VITALS: BP 162/87; O2SAT 96
[2025-02-03 10:02] VITALS: O2SAT 96
[2025-02-03 12:09] LABS: HEMATOCRIT 30.1 % (36.0-45.00); MEAN CELL VOLUME 89.1 fL (80.00-100.00); MEAN CORPUSCULAR HGB CONC 32.6 g/dl (32.0-36.0); PLATELET COUNT 210 K/uL (150-450); RED BLOOD COUNT 3.38 M/uL (4.00-6.00); RED CELL DISTRIBUTION WIDTH 14.6 % (11.5-14.5)
[2025-02-03 12:36] LABS: HEMOGLOBIN 9.8 g/dL (12.0-15.00); MEAN CORPUSCULAR HEMOGLOBIN 28.9 pg (27.00-32.0)
[2025-02-03 13:00] VITALS: BP 162/83; O2SAT 95
[2025-02-03 13:13] LABS: CALCIUM 8.2 mg/dL (8.5-10.1); CREATININE SERUM 0.79 mg/dL (0.55-1.02); GFR 71.74; POTASSIUM 3.91 mEq/L (3.5-5.1)
[2025-02-03 16:00] VITALS: BP 153/81; O2SAT 95
[2025-02-03 23:47] VITALS: BP 139/81; O2SAT 96
[2025-02-04 08:16] VITALS: BP 146/76; O2SAT 96
[2025-02-04 16:00] VITALS: BP 159/76; O2SAT 96
[2025-02-04] MEDS ORDERED: ACETAMINOPHEN 500 MG GEL..CAP PO PRN (21:00)
[2025-02-05 00:21] VITALS: BP 141/82; O2SAT 97
[2025-02-05 08:37] VITALS: BP 165/86; O2SAT 96
== END 2025-02-05 12:16 | disposition home or self-care (01) | DRG 329 ==
LOC: O/R 01-07 05:12 → SURH 01-07 05:12 → SURG 01-07 15:52 → SURH 01-07 16:43 → ICU 01-10 14:08 → SURH 01-15 18:59
PROVIDERS: Internal Medicine; Internal Medicine Geriatric Medicine; Internal Medicine Infectious Disease; Internal Medicine Nephrology; Surgery; ADMIT Surgery; ATTEND Surgery
PROC: 0DBP4ZZ Excision of Rectum, Percutaneous Endoscopic Approach (ICD-10-PCS; 2025-01-07)
PROC: 0DTN4ZZ Resection of Sigmoid Colon, Percutaneous Endoscopic Approach (ICD-10-PCS; 2025-01-07)
PROC: 0DBH4ZZ Excision of Cecum, Percutaneous Endoscopic Approach (ICD-10-PCS; 2025-01-07)
PROC: 0DT84ZZ Resection of Small Intestine, Percutaneous Endoscopic Approach (ICD-10-PCS; principal; 2025-01-07 07:00)
PROC: 30243N1 Transfusion of Nonautologous Red Blood Cells into Central Vein, Percutaneous Approach (ICD-10-PCS; 2025-01-09)
PROC: 02HV33Z Insertion of Infusion Device into Superior Vena Cava, Percutaneous Approach (ICD-10-PCS; 2025-01-10)
PROC: 5A1D70Z Performance of Urinary Filtration, Intermittent, Less than 6 Hours Per Day (ICD-10-PCS; 2025-01-10)
PROC: 4A12X4Z Monitoring of Cardiac Electrical Activity, External Approach (ICD-10-PCS; 2025-01-10)
PROC: BT42ZZZ Ultrasonography of Left Kidney (ICD-10-PCS; 2025-01-11)
PROC: BW21YZZ Computerized Tomography (CT Scan) of Abdomen and Pelvis using Other Contrast (ICD-10-PCS; 2025-01-12)
PROC: 02PYX3Z Removal of Infusion Device from Great Vessel, External Approach (ICD-10-PCS; 2025-01-14)
PROC: BW24ZZZ Computerized Tomography (CT Scan) of Chest and Abdomen (ICD-10-PCS; 2025-01-20)
PROC: BW21YZZ Computerized Tomography (CT Scan) of Abdomen and Pelvis using Other Contrast (ICD-10-PCS; 2025-01-20)
PROC: 8E0ZXY6 Isolation (ICD-10-PCS; 2025-01-26)
PROC: 0T7D8ZZ Dilation of Urethra, Via Natural or Artificial Opening Endoscopic (ICD-10-PCS; 2025-01-26)
PROC: B54MZZZ Ultrasonography of Right Upper Extremity Veins (ICD-10-PCS; 2025-01-26)
PROC: BW24YZZ Computerized Tomography (CT Scan) of Chest and Abdomen using Other Contrast (ICD-10-PCS; 2025-01-27)
PROC: BW21YZZ Computerized Tomography (CT Scan) of Abdomen and Pelvis using Other Contrast (ICD-10-PCS; 2025-01-27)
PROC: B24BYZZ Ultrasonography of Heart with Aorta using Other Contrast (ICD-10-PCS; 2025-01-27)
PROC: 02HV33Z Insertion of Infusion Device into Superior Vena Cava, Percutaneous Approach (ICD-10-PCS; 2025-02-01)
DX: K57.20 Diverticulitis of large intestine with perforation and abscess without bleeding (principal); R65.21 Severe sepsis with septic shock; E87.20 Acidosis, unspecified; K63.2 Fistula of intestine; N17.9 Acute kidney failure, unspecified; K56.600 Partial intestinal obstruction, unspecified as to cause; J81.1 Chronic pulmonary edema; N39.0 Urinary tract infection, site not specified; K63.89 Other specified diseases of intestine; N73.9 Female pelvic inflammatory disease, unspecified; R32 Unspecified urinary incontinence; E66.01 Morbid (severe) obesity due to excess calories; R06.03 Acute respiratory distress; I10 Essential (primary) hypertension; E11.9 Type 2 diabetes mellitus without complications; Z79.4 Long term (current) use of insulin; D64.9 Anemia, unspecified; E87.5 Hyperkalemia; B96.1 Klebsiella pneumoniae [K. pneumoniae] as the cause of diseases classified elsewhere; F43.21 Adjustment disorder with depressed mood; R09.02 Hypoxemia

== ENCOUNTER 2025-03-22 10:35 | Inpatient (IN) | payer OTHER ==
[~2025-03-22] VITALS: Ht 152.4 cm; Wt 99.8 kg
--- NOTE | 2025-03-22 11:49 | NUR ---
SE RECIBE FEMINA ALERTA Y ORIENTADA X3 QUIEN VIENE POR REFERIDO DE DR RIN MONT[place] PARA SER ADMITIDA. SE MIDEN S/V Y SE UBICA.
[2025-03-22] MEDS ORDERED: 0.9 % SODIUM CHLORIDE 1,000 ML IV SCH ×2 (12:00→20:00)
[2025-03-22 13:05] LABS: BASO % 0.4 % (0.1-1.2); EOS # 0.18 (0.04-0.54); EOS % 1.9 % (0.7-7.0); HEMATOCRIT 35.2 % (34.1-44.9); HEMOGLOBIN 11.7 g/dL (11.2-15.7); LYMPH % 12.9 % (19.3-53.1); MEAN CORPUSCULAR HEMOGLOBIN 29.9 pg (25.6-32.2); MONO # 0.57 (0.24-0.82); MONO % 6.1 % (4.7-12.5); NEUT % 78.3 % (34.0-71.1); PLATELET COUNT 321 K/uL (163-369); RED BLOOD COUNT 3.91 M/uL (3.93-5.22); RED CELL DISTRIBUTION WIDTH 15.3 % (11.6-14.4)
--- NOTE | 2025-03-22 13:05 | NUR ---
SE ORIENTA PTE SOBRE TX, REFIERE ENTENDER Y ACEPTAR. SE LE CAMILA MUESTRAS DE LABORATORIO, SE CANALIZA Y SE COLOCAN IV FLUIDS SYLVESTER ORDEN MEDICA Y BAJO MEDIDAS ASEPTICAS.
[2025-03-22 13:42] LABS: INR 1.04; PARTIAL THROMBOPLASTIN TIME 36.2 SECONDS (22.0-34.0); PROTHROMBIN TIME 11.3 SECONDS (9.0-11.5)
[2025-03-22 14:05] LABS: COVID-19 AG NEGATIVE (NEGATIVE)
[2025-03-22 14:11] LABS: INFLUENZA A AG NEGATIVE (NEGATIVE); INFLUENZA B AG NEGATIVE (NEGATIVE)
[2025-03-22 14:26] LABS: CALCIUM 8.5 mg/dL (8.5-10.1); CREATININE SERUM 1.19 mg/dL (0.55-1.02); GFR 44.71; POTASSIUM 4.14 mEq/L (3.5-5.1)
[2025-03-22 14:35] LABS: PH,URINE 5.5 (5.0-8.0); URINE APPEARANCE Turbid; URINE BILIRRUBIN Negative (NEGATIVE); URINE BLOOD Large; URINE COLOR Dark Yellow; URINE GLUCOSE Negative (NEGATIVE); URINE KETONE Negative (NEGATIVE); URINE LEUKOCYTE Large; URINE NITRATE Positive
[2025-03-22 14:37] LABS: URINE BACTERIA 6078.2 uL (0.0-1933); URINE EPITHELIAL CELLS 27.2 uL (0.0-38.8); URINE RBC 7552.6 uL (0.0-20.8)
[2025-03-22 14:51] LABS: URINE CAST 1.11 uL (0.0-1.40); URINE PROTEIN 100 (NEGATIVE); URINE WBC > 5548.3 uL (0.0-23.2)
[2025-03-22 14:54] LABS: URINE EPITHELIAL CELLS 0-4 /HPF
[2025-03-22] MEDS ORDERED: MEROPENEM 500 MG/VIAL VIAL IV SCH (20:05)
[2025-03-22] MEDS ORDERED: DEXTROSE 50 % IN WATER 0.5 G/ML VIAL IV PRN (20:15)
[2025-03-22] MEDS ORDERED: INSULIN LISPRO 1,000 UNIT/10 ML UNITS SUBCUTANEO PRN (20:15)
[2025-03-22] MEDS ORDERED: ACETAMINOPHEN 500 MG GEL..CAP PO PRN (20:15)
[2025-03-23 03:06] LABS: MAGNESIUM 2.1 mg/dL (1.8-2.4); PHOSPHOROUS 3.7 mg/dL (2.5-4.9); TSH 1.48 uIU/mL (0.358-3.74)
[2025-03-23] MEDS ORDERED: LEVOTHYROXINE SODIUM 112 MCG TABLET PO SCH (06:00)
[2025-03-23 06:43] VITALS: BP 132/85; O2SAT 97
[2025-03-23] MEDS ORDERED: FAMOTIDINE/PF 20 MG in 0.9 % SODIUM CHLORIDE 8 ML IV PUSH SCH (09:00)
[2025-03-23] MEDS ORDERED: ENOXAPARIN SODIUM 40 MG/0.4 ML SYRINGE SUBCUTANEO SCH (09:00)
[2025-03-23] MEDS ORDERED: ATORVASTATIN CALCIUM 10 MG TABLET PO SCH (09:00)
[2025-03-23] MEDS ORDERED: DIOVAN HCT PO SCH (09:00)
[2025-03-23 10:01] VITALS: BP 124/66; O2SAT 98
[2025-03-23] MEDS ORDERED: CEFTAZIDIME/AVIBACTAM 1.25GM/100ML NSS PB IV SCH (17:00)
[2025-03-23 17:21] VITALS: BP 114/67
[2025-03-24 01:37] VITALS: BP 118/70; O2SAT 97
[2025-03-24 08:24] VITALS: BP 111/50; O2SAT 96
[2025-03-24] MEDS ORDERED: LINEZOLID IN DEXTROSE 5% 300 ML IV NR (12:00)
[2025-03-24 12:50] LABS: BASO % 0.4 % (0.1-1.2); EOS # 0.17 (0.04-0.54); EOS % 2.5 % (0.7-7.0); HEMATOCRIT 33.7 % (34.1-44.9); HEMOGLOBIN 10.7 g/dL (11.2-15.7); LYMPH # 1.13 (1.18-3.74); LYMPH % 16.6 % (19.3-53.1); MEAN CORPUSCULAR HEMOGLOBIN 29.7 pg (25.6-32.2); MONO # 0.54 (0.24-0.82); NEUT # 4.89 (1.56-6.13); NEUT % 72.1 % (34.0-71.1); PLATELET COUNT 317 K/uL (163-369); RED CELL DISTRIBUTION WIDTH 15.6 % (11.6-14.4)
[2025-03-24 13:15] LABS: CALCIUM 8.8 mg/dL (8.5-10.1); CREATININE SERUM 1.21 mg/dL (0.55-1.02); GFR 43.86; POTASSIUM 4.46 mEq/L (3.5-5.1)
[2025-03-24] MEDS ORDERED: METRONIDAZOLE/SODIUM CHLORIDE 100 ML IV SCH (17:00)
[2025-03-24 18:21] VITALS: BP 158/80; O2SAT 97
[2025-03-24] MEDS ORDERED: LINEZOLID IN DEXTROSE 5% 300 ML IV SCH (21:00)
[2025-03-25 01:25] VITALS: BP 120/63; O2SAT 98
[2025-03-25 07:07] LABS: URINE BACTERIA 564.2 uL (0.0-1933); URINE CAST 1.76 uL (0.0-1.40); URINE WBC 2721.5 uL (0.0-23.2)
[2025-03-25 07:10] LABS: URINE COLOR YELLOW
[2025-03-25 07:11] LABS: URINE APPEARANCE SL CLOUDY; URINE BILIRRUBIN NEGATIVE (NEGATIVE); URINE GLUCOSE NEGATIVE (NEGATIVE); URINE KETONE NEGATIVE (NEGATIVE)
[2025-03-25 07:12] LABS: URINE BLOOD LARGE; URINE LEUKOCYTE MODERATE; URINE NITRATE POSITIVE; URINE PROTEIN NEGATIVE (NEGATIVE); URINE UROBILINOGEN 0.2 E.U./dl
[2025-03-25 08:15] LABS: MAGNESIUM 1.6 mg/dL (1.8-2.4); PHOSPHOROUS 3.7 mg/dL (2.5-4.9)
[2025-03-25 09:22] VITALS: BP 142/67; O2SAT 97
[2025-03-25 17:31] VITALS: BP 135/57
[2025-03-25] MEDS ORDERED: FAMOtidine 20 MG TABLET PO SCH (21:00)
[2025-03-25] MEDS ORDERED: LINEZOLID 600 MG TABLET PO SCH (21:00)
[2025-03-26 01:24] VITALS: BP 104/60
[2025-03-26 08:31] VITALS: BP 149/72; O2SAT 96
[2025-03-26] MEDS ORDERED: PHENAZOPYRIDINE HCL 100 MG TABLET PO SCH (09:00)
[2025-03-26 18:34] VITALS: BP 140/77
[2025-03-26] MEDS ORDERED: CHOLESTYRAMINE/ASPARTAME LIGHT 4 G/PKT PACKET PO SCH (21:07)
[2025-03-27 00:51] VITALS: BP 130/72
[2025-03-27 08:33] LABS: BASO % 0.7 % (0.1-1.2); EOS # 0.18 (0.04-0.54); HEMATOCRIT 30.6 % (34.1-44.9); HEMOGLOBIN 9.7 g/dL (11.2-15.7); LYMPH # 1.07 (1.18-3.74); LYMPH % 17.8 % (19.3-53.1); MEAN CORPUSCULAR HEMOGLOBIN 29.4 pg (25.6-32.2); MONO # 0.41 (0.24-0.82); MONO % 6.8 % (4.7-12.5); NEUT # 4.27 (1.56-6.13); NEUT % 71.2 % (34.0-71.1); PLATELET COUNT 269 K/uL (163-369); RED CELL DISTRIBUTION WIDTH 15.6 % (11.6-14.4)
[2025-03-27 08:47] LABS: ALBUMIN 2.6 gm/dL (3.4-5.0); BILIRUBIN TOTAL 0.23 mg/dL (0.3-1.2); CALCIUM 8.3 mg/dL (8.5-10.1); CREATININE SERUM 1.25 mg/dL (0.55-1.02); GFR 42.25; GLOBULINA 3.5 G/DL (2.4-3.5); MAGNESIUM 1.5 mg/dL (1.8-2.4); PHOSPHOROUS 3.2 mg/dL (2.5-4.9); POTASSIUM 4.22 mEq/L (3.5-5.1); TOTAL PROTEIN 6.1 gm/dL (6.4-8.2)
[2025-03-27 09:05] VITALS: BP 135/70; O2SAT 98
[2025-03-27] MEDS ORDERED: SODIUM CHLORIDE 0.45 % 1,000 ML IV SCH (12:45)
[2025-03-27 16:00] VITALS: BP 130/64; BP 130/66; O2SAT 97; O2SAT 98
[2025-03-27] MEDS ORDERED: SOD FERRIC GLUC COMPLX/SUCROSE 125 MG in 0.9 % SODIUM CHLORIDE 100 ML IV SCH (17:00)
[2025-03-27] MEDS ORDERED: VITAMIN B COMPLEX 1 EACH PO SCH (17:00)
[2025-03-27] MEDS ORDERED: Cyanocobalamin/Mecobalamin 1 TAB.SL SL SCH (17:00)
[2025-03-28 00:57] VITALS: BP 112/69
[2025-03-28 08:51] VITALS: BP 125/72; O2SAT 96
[2025-03-28 10:16] LABS: PH,URINE 5.5 (5.0-8.0); URINE APPEARANCE Clear; URINE BILIRRUBIN Negative (NEGATIVE); URINE BLOOD Large; URINE COLOR Dark Yellow; URINE GLUCOSE Negative (NEGATIVE); URINE KETONE Negative (NEGATIVE); URINE LEUKOCYTE Large; URINE NITRATE Positive; URINE PROTEIN Trace (NEGATIVE)
[2025-03-28 10:20] LABS: URINE BACTERIA 77.1 uL (0.0-1933); URINE EPITHELIAL CELLS 1.4 uL (0.0-38.8); URINE RBC 503.9 uL (0.0-20.8); URINE WBC 509.9 uL (0.0-23.2)
[2025-03-28 16:00] VITALS: BP 146/75; O2SAT 96
[2025-03-29 01:23] VITALS: BP 129/66
[2025-03-29 06:46] LABS: BASO % 0.7 % (0.1-1.2); EOS # 0.23 (0.04-0.54); EOS % 3.1 % (0.7-7.0); HEMATOCRIT 31.7 % (34.1-44.9); HEMOGLOBIN 9.9 g/dL (11.2-15.7); LYMPH # 1.22 (1.18-3.74); LYMPH % 16.6 % (19.3-53.1); MEAN CORPUSCULAR HEMOGLOBIN 28.9 pg (25.6-32.2); MONO # 0.51 (0.24-0.82); MONO % 6.9 % (4.7-12.5); NEUT # 5.32 (1.56-6.13); NEUT % 72.2 % (34.0-71.1); PLATELET COUNT 259 K/uL (163-369); RED BLOOD COUNT 3.42 M/uL (3.93-5.22); RED CELL DISTRIBUTION WIDTH 15.8 % (11.6-14.4)
[2025-03-29 07:53] LABS: ALBUMIN 2.8 gm/dL (3.4-5.0); BILIRUBIN TOTAL 0.24 mg/dL (0.3-1.2); CALCIUM 8.8 mg/dL (8.5-10.1); CREATININE SERUM 1.24 mg/dL (0.55-1.02); GFR 42.64; GLOBULINA 3.5 G/DL (2.4-3.5); MAGNESIUM 1.5 mg/dL (1.8-2.4); PHOSPHOROUS 3.4 mg/dL (2.5-4.9); POTASSIUM 4.4 mEq/L (3.5-5.1); TOTAL PROTEIN 6.3 gm/dL (6.4-8.2)
[2025-03-29 09:08] VITALS: BP 140/59; O2SAT 97
[2025-03-29] MEDS ORDERED: LINEZOLID 600 MG TABLET PO NR (14:00)
[2025-03-29 17:14] VITALS: BP 134/82; O2SAT 98
[2025-03-29] MEDS ORDERED: LINEZOLID 600 MG TABLET PO SCH (21:00)
[2025-03-30 01:08] VITALS: BP 116/70; O2SAT 99
[2025-03-30 09:10] VITALS: BP 153/79; O2SAT 96
[2025-03-30] MEDS ORDERED: MAGNESIUM SULFATE IN WATER 50 ML IV NR (14:00)
[2025-03-30] MEDS ORDERED: FLUCONAZOLE IN NACL,ISO-OSM 200 MG/100 ML PIGGYBAG IV NR (16:00)
[2025-03-30 17:39] VITALS: BP 136/70
[2025-03-31 02:54] VITALS: BP 142/81; O2SAT 95
[2025-03-31 08:00] VITALS: BP 127/76
[2025-03-31] MEDS ORDERED: FLUCONAZOLE IN NACL,ISO-OSM 2 MG/ML ML IV SCH (12:00)
[2025-03-31] MEDS ORDERED: CHLORHEXIDINE GLUCONATE 120 ML BOTTLE TOP ONE (18:07)
[2025-03-31] MEDS ORDERED: IOVERSOL 320 MG/ML - 50 ML VIAL IV ONE (18:08)
[2025-03-31 18:59] VITALS: BP 165/74
[2025-04-01 03:36] VITALS: BP 135/56
[2025-04-01 08:25] VITALS: BP 136/63; BP 143/73; O2SAT 97; O2SAT 99
[2025-04-01 10:15] LABS: BASO % 0.6 % (0.1-1.2); EOS # 0.17 (0.04-0.54); EOS % 2.3 % (0.7-7.0); HEMATOCRIT 32.7 % (34.1-44.9); HEMOGLOBIN 10.3 g/dL (11.2-15.7); LYMPH # 1.05 (1.18-3.74); LYMPH % 14.5 % (19.3-53.1); MEAN CORPUSCULAR HEMOGLOBIN 29.7 pg (25.6-32.2); MONO # 0.51 (0.24-0.82); NEUT # 5.44 (1.56-6.13); PLATELET COUNT 227 K/uL (163-369); RED BLOOD COUNT 3.47 M/uL (3.93-5.22); RED CELL DISTRIBUTION WIDTH 15.9 % (11.6-14.4)
[2025-04-01 11:49] LABS: ALBUMIN 2.9 gm/dL (3.4-5.0); BILIRUBIN TOTAL 0.44 mg/dL (0.3-1.2); CALCIUM 8.9 mg/dL (8.5-10.1); CREATININE SERUM 0.85 mg/dL (0.55-1.02); GFR 65.93; GLOBULINA 3.5 G/DL (2.4-3.5); MAGNESIUM 1.7 mg/dL (1.8-2.4); PHOSPHOROUS 3.4 mg/dL (2.5-4.9); POTASSIUM 4.7 mEq/L (3.5-5.1); TOTAL PROTEIN 6.4 gm/dL (6.4-8.2)
[2025-04-01] MEDS ORDERED: QUESTRAN LIGHT210 GM PO (15:49)
[2025-04-01] MEDS ORDERED: INTEGRA F CAPS1 EACH PO (15:49)
[2025-04-01 18:47] VITALS: BP 150/79; O2SAT 98
[2025-04-02] VITALS: BP 117/58; O2SAT 95
[2025-04-02 08:07] VITALS: BP 116/73
[2025-04-08] MEDS ORDERED: PEPCID AC20 MG PO (13:30)
[2025-04-08] MEDS ORDERED: LEVOFLOXACIN500 MG PO (13:30)
== END 2025-04-02 11:40 | disposition home or self-care (01) | DRG 659 ==
LOC: ER 10:35 → MEDI 20:36 → MEDJ 20:36
PROVIDERS: Emergency Medicine; General Practice; Internal Medicine; Internal Medicine Infectious Disease; Urology; ADMIT Internal Medicine; ATTEND Internal Medicine
PROC: BW21ZZZ Computerized Tomography (CT Scan) of Abdomen and Pelvis (ICD-10-PCS; 2025-03-24)
PROC: 0TPD8DZ Removal of Intraluminal Device from Urethra, Via Natural or Artificial Opening Endoscopic (ICD-10-PCS; 2025-03-31)
PROC: BT1FZZZ Fluoroscopy of Left Kidney, Ureter and Bladder (ICD-10-PCS; 2025-03-31)
PROC: 0T778DZ Dilation of Left Ureter with Intraluminal Device, Via Natural or Artificial Opening Endoscopic (ICD-10-PCS; principal; 2025-03-31 18:30)
DX: N39.0 Urinary tract infection, site not specified (principal); A41.9 Sepsis, unspecified organism; N17.9 Acute kidney failure, unspecified; S37.13XA Laceration of ureter, initial encounter; I10 Essential (primary) hypertension; E11.9 Type 2 diabetes mellitus without complications; Z79.4 Long term (current) use of insulin; B96.1 Klebsiella pneumoniae [K. pneumoniae] as the cause of diseases classified elsewhere